=== PATIENT | female | born 1940 | race Caucasian/White ===

== ENCOUNTER → 2017-12-31 | Outpatient (CLI) | payer MEDICARE | LOC: M WHC 11:10 | DX: Z12.31 Encounter for screening mammogram for malignant neoplasm of breast (principal); Z78.0 Asymptomatic menopausal state | CPT/HCPCS: 77067 ==

== ENCOUNTER → 2019-01-06 | Outpatient (CLI) | payer MEDICARE ==
--- NOTE | 2019-01-06 13:22 | REPMRS ---
Patient History The patient states she had a clinical breast exam in 12/2018. Patient is postmenopausal and has history of skin cancer at age 78. Family history of prostate cancer at age 57 in son. 3D TOMOSYNTHESIS WAS PERFORMED. Digital Woman Screen Mammo: January 06, 2019 - Exam #: [id number] Bilateral CC and MLO view(s) were taken. Technologist: Nery Stewart, Technologist Prior study comparison: December 31, 2017, digital woman screen mammo performed at [facility]. July 18, 2016, digital woman screen mammo performed at [facility] [place] [facility] [facility]. FINDINGS: There are scattered fibroglandular densities. There has been no change in the appearance of the mammogram from the prior studies. There is a mild amount of residual fibroglandular tissue which is fairly symmetric. There is no interval development of dominant mass, architectural distortion, or clustered microcalcification suggestive of malignancy. Assessment: BI-RADS/ACR category 1 mammogram. Negative Mammogram. Recommendation Routine screening mammogram in 1 year (for women over age 40). This mammogram was interpreted with the aid of an FDA-approved computer-aided dectection system. Electronically Signed By: Artur Duron MD 01/06/19 1398
== END ==
LOC: M WHC 11:05
PROVIDERS: ATTEND Nurse Practitioner Women's Health
DX: Z12.31 Encounter for screening mammogram for malignant neoplasm of breast (principal); Z78.0 Asymptomatic menopausal state; Z85.828 Personal history of other malignant neoplasm of skin
CPT/HCPCS: 77063; 77067; G0463

== ENCOUNTER → 2019-04-02 | Outpatient (CLI) | payer MEDICARE ==
--- NOTE | 2019-04-04 15:53 | DEXA ---
AP SPINE L1 - L4 0.998 -1.6 0.2 LT FEMUR TOTAL 0.742 -2.1 -0.3 LT NECK 0.661 -2.7 -0.7 RT FEMUR TOTAL 0.763 -1.9 0.1 RT NECK 0.696 -2.5 -0.5 TOTAL BODY TOTAL OTHER COMMENTS: There is low bone density of the spine. There is low bone density of the right hip. There is osteoporosis of the left hip. Lumbar scoliosis The density of the spine has decreased 10.7% since the initial exam on 09/19/2000. The spine density has decreased 0.9% since the most recent exam on 07/18/2016. The density of the left hip has decreased 16.3% since the initial exam on 09/19/2000. The density of the left hip has decreased 3.1% since the most recent exam on 07/18/2016. The density of the right hip has decreased 14.3% since the initial exam on 09/19/2000. The density of the right hip has increased her 0.4% since the most recent exam on 07/18/2016. FOLLOW-UP: Recommendation for the next bone density exam: 2 years. BIJU
== END ==
LOC: M WHC 09:34
PROVIDERS: ATTEND Physician Assistant Medical
DX: Z78.0 Asymptomatic menopausal state (principal)

== ENCOUNTER → 2020-03-30 | Outpatient (CLI) | payer MEDICARE ==
--- NOTE | 2020-04-15 16:41 | REPMRS ---
Patient History The patient states she had a clinical breast exam in 03/2020. Patient is postmenopausal and has history of skin cancer at age 78. Family history of prostate cancer at age 57 in son. No Hormone Replacement Therapy Digital Woman Screen Mammo: March 30, 2020 - Exam #: [id number] Bilateral CC and MLO view(s) were taken. Technologist: Nery Stewart, Technologist Prior study comparison: January 06, 2019, bilateral digital woman screen mammo performed at [facility]. December 31, 2017, digital woman screen mammo performed at [facility]. July 18, 2016, digital woman screen mammo performed at [facility]. FINDINGS: There are scattered fibroglandular densities. The Volpara volumetric breast density category is:B. There has been no change in the appearance of the mammogram from the prior studies. There is a mild amount of scattered fibroglandular density which is fairly symmetric. There is no interval development of dominant mass, architectural distortion, or grouped microcalcification suggestive of malignancy. 3-D tomosynthesis shows no additional findings. Assessment: BI-RADS/ACR category 1 mammogram. Negative Mammogram. Recommendation Routine screening mammogram of both breasts in 1 year (for women over age 40). This patient's Lifetime Breast Cancer Risk is estimated at 1.6 %. This mammogram was interpreted with the aid of an FDA-approved computer-aided dectection system. Electronically Signed By: Oliverio Cabrales MD 04/15/20 [id number]
== END ==
LOC: M WHC 10:00
PROVIDERS: ATTEND Nurse Practitioner Women's Health
DX: Z01.419 Encounter for gynecological examination (general) (routine) without abnormal findings (principal); Z12.31 Encounter for screening mammogram for malignant neoplasm of breast; Z78.0 Asymptomatic menopausal state; Z85.828 Personal history of other malignant neoplasm of skin; Z80.42 Family history of malignant neoplasm of prostate
CPT/HCPCS: 77063; 77067; G0101